=== PATIENT | male | born 1990 | race Caucasian/White ===

== ENCOUNTER 2021-04-15 17:01 | Emergency (ER) | payer SELFPAY ==
--- NOTE | ~2021-04-15 | US_ITS ---
EXAMINATION: US ABDOMEN LIMITED CLINICAL INFORMATION: Right upper quadrant pain with question of gallstones. COMPARISON: None TECHNIQUE: Real-time imaging of the right upper quadrant limited to the gallbladder was performed. FINDINGS: GALLBLADDER: The gallbladder is physiologically distended without evidence of stones, sludge, polyps, wall thickening or pericholecystic fluid. The gallbladder wall measures 2 mm in thickness. No free fluid is seen. The visualized portions of the liver were unremarkable. US/US abdomen limited IMPRESSION: Normal-appearing gallbladder.
[2021-04-15 17:40] VITALS: BP 140/81; PULSE 81; RESP 18; TEMP 37; O2SAT 100; BMI 39.1
[2021-04-15 19:53] LABS: MANUAL DIFF FLAG NO
[2021-04-15 19:54] LABS: Basophils Percent Auto 0.3 % (0-2); Eosinophils Absolute Auto 0.1 X10*3/uL (0.0-0.4); Eosinophils Percent Auto 1.4 % (0-4); Hemoglobin 14.6 g/dl (14.0-18.0); Imm Gran Abs Auto 0.01 X10*3/uL (0.00-0.03); Imm Gran Pct Auto 0.2 % (0.0-0.4); Lymphocytes Absolute Auto 2.2 X10*3/uL (1.2-4.9); Lymphocytes Percent Auto 37.7 % (20-40); Mean Corpuscular Hemoglobin 30.2 pg (27.0-33.0); Mean Corpuscular Volume 88.8 fL (80-98); Mean Platelet Volume 9.9 fL (9.4-12.4); Monocytes Absolute Auto 0.5 X10*3/uL (0.1-1.2); Monocytes Percent Auto 7.9 % (2-11); Neutrophils Percent Auto 52.5 % (45-73); Platelet Count 206 X10*3/uL (160-400); Red Blood Count 4.84 X10*6/uL (4.60-5.80); White Blood Count 5.7 X10*3/uL (4.8-10.8)
[2021-04-15 20:16] LABS: Alanine Aminotransferase 32 U/L (0-40); Albumin Level 4.6 g/dL (3.5-5.0); Alkaline Phosphatase 59 U/L (39-117); Anion Gap 14 (12-20); Aspartate Amino Transferase 29 U/L (5-37); Bilirubin Total 0.8 mg/dL (0.0-1.0); Blood Urea Nitrogen 10 mg/dL (9-16); Calcium 9.1 mg/dL (8.4-10.2); Carbon Dioxide 27 mmol/L (22-29); Chloride 105 mmol/L (96-108); Creatinine Clr Calc Pharmacy 178.6; Estimated Glomerular Filt Rate > 60; Glucose Random 96 mg/dL (60-115); Potassium 4.4 mmol/L (3.3-5.1); Sodium 142 mmol/L (135-145); Total Protein 7.4 g/dL (6.5-8.0)
--- NOTE | 2021-04-15 20:46 | ED.ABDPAIN ---
HPI - Abdominal Pain General Chief Complaint: Abdominal Pain Stated Complaint: abd pain Time Seen by Provider: 04/15/21 20:38 Source: patient Mode of arrival: ambulatory Limitations: no limitations History of Present Illness HPI narrative: 30-year-old male who presents emergency department for evaluation of abdominal pain. Patient states that he has been having abdominal pain intermittently for 2 months. States that over the past week the pain has been constant and has been worse over the past 3 days. The patient points to his right upper quadrant area when asked to localize the pain. He describes the pain as a stabbing pain and I bloated gaslike feeling. States that the pain has been constant for 3 days and is 8/10 at its worst. He states the pain is worse approximately 1 hour after eating food. He states that milk products seem to make the pain worse as well. He has had intermittent nausea with no vomiting. He states he did have diarrheal stools yesterday but had normal bowel movement today. He denied fever or chills. Related Data Previous Rx's Medication Instructions Recorded omeprazole 20 mg PO DAILY #30 tab 04/15/21 Allergies Allergy/AdvReac Type Severity Reaction Status Date / Time No Known Allergies Allergy Verified 04/15/21 17:40 Review of Systems Review of Systems Yes all other systems are reviewed and are negative Physical Exam Vital Signs: Vital Signs: Last Vital Signs Temp 98.6 F 04/15/21 17:40 Pulse 81 04/15/21 17:40 Resp 18 04/15/21 17:40 BP 140/81 H 04/15/21 17:40 Pulse Ox 100 04/15/21 17:40 Body Mass Index 39.1 Const: General: cooperative and healthy appearing Orientation/consciousness: oriented to person and oriented to place Limitations: no limitations HENMT: Head: Yes normal to inspection, Yes normocephalic and Yes atraumatic Ears: external ears normal General nose exam: Normal external nose present Face and sinus: Yes normal facial exam Mouth: Normal oral and palatal mucosa present Throat: Yes posterior oropharynx normal Eyes: Periorbital: periorbital findings normal Eyelids: Yes eyelids normal Conjunctivae: conjunctivae normal Sclerae: sclerae normal Corneas: corneas normal Pupils: Equal, round and reactive pupils present Direct Ophthalmoscopy: normal light reflex Neck: Neck: Yes full ROM, Yes no lymphadenopathy, Yes no meningeal signs, Yes trachea midline and Yes supple Chest: Chest palpation & inspection: normal inspection of the chest and normal palpation of entire chest wall Resp: Effort & Inspection: normal respiratory effort and able to speak in complete sentences Auscultation: clear to auscultation bilaterally Cardio: Rate: regular rate Rhythm: regular rhythm Heart sounds: S1 normal heart sound present, S2 normal heart sound present and no murmurs GI: Inspection: Yes normal to inspection Palpation (GI): Soft to palpation, Tenderness to palpation present (GI) in the RUQ (Moderate, negative Stanley sign), no guarding, not rigid and No hepatosplenomegaly present : General: Yes no CVA tenderness Back/Spine/Pelvis: Back: no CVA tenderness Cervical Spine: normal cervical lordosis Thoracic/Lumbar Spine: thoracic and lumbar spine normal to inspection Skin: Lesions: no lesions Rashes: no rashes Wounds: no wounds Neuro: General: oriented to person, oriented to place and no meningeal signs Cranial nerves: Yes CN's II-XII intact bilaterally and Yes Equal, round and reactive pupils present Cognition (Neuro): normal cognition Motor exam (neuro): 5/5 motor strength present throughout Extrem: General: Yes normal to inspection and Yes full ROM Psych: Appearance: well kempt Mental Status: mental status grossly normal Speech and movement: Normal speech and movement present Affect: normal affect Attitude: cooperative Thought process: Normal thought process present Thought content: Normal thought content present Course Course Course Narrative: 30-year-old male who presents emergency department for evaluation of her intermittent right upper quadrant pain which has been constant for the past week and worse the past 3 days. The pain is exacerbated by food and is worse 1-2 hours after eating. Physical examination did reveal right upper quadrant tenderness. Laboratory evaluation revealed a normal CBC and a normal CMP. I did order a lipase on the patient and a right upper quadrant ultrasound to evaluate the patient for gallstones. 2225: Patient's Doppler ultrasound was normal. Given normal LFTs and a normal Doppler ultrasound, I suspect that his pain is more likely secondary to gastritis/esophagitis. I did discuss this with the patient. The patient will be treated with Prilosec 20 mg once a day for 1 month. He was given printed and verbal instructions and advised return to emergency department if his symptoms get worse or if developing new symptoms that are concerning to him. MDM - Abdominal Pain Lab Data Result diagrams: 04/15/21 19:48 04/15/21 19:48 Labs: Lab Results 04/15/21 04/15/21 Range/Units 19:48 19:48 WBC 5.7 (4.8-10.8) X10*3/uL RBC 4.84 (4.60-5.80) X10*6/uL Hgb 14.6 (14.0-18.0) g/dl Hct 43.0 (42-52) % MCV 88.8 (80-98) fL MCH 30.2 (27.0-33.0) pg MCHC 34.0 (31.0-36.0) g/dl RDW 13.0 (11.0-16.0) % Plt Count 206 (160-400) X10*3/uL MPV 9.9 (9.4-12.4) fL Immature Gran % (Auto) 0.2 (0.0-0.4) % Neut % (Auto) 52.5 (45-73) % Lymph % (Auto) 37.7 (20-40) % [place] % (Auto) 7.9 (2-11) % Eos % (Auto) 1.4 (0-4) % Baso % (Auto) 0.3 (0-2) % Lymph # (Auto) 2.2 (1.2-4.9) X10*3/uL [place] # (Auto) 0.5 (0.1-1.2) X10*3/uL Eos # (Auto) 0.1 (0.0-0.4) X10*3/uL Baso # (Auto) 0.0 (0.0-0.2) X10*3/uL Abs Immat Gran (auto) 0.01 (0.00-0.03) X10*3/uL Absolute Neuts (auto) 3.0 (2.0-8.3) X10*3/uL Absolute Nucleated RBC 0.000 (0.0-0.012) X10*3/uL Nucleated RBC % (auto) 0.0 (0.0-0.2) /100WBC Sodium 142 (135-145) mmol/L Potassium 4.4 (3.3-5.1) mmol/L Chloride 105 (96-108) mmol/L Carbon Dioxide 27 (22-29) mmol/L Anion Gap 14 (12-20) BUN 10 (9-16) mg/dL Creatinine 0.83 (0.5-1.4) mg/dL Estim Creat Clear Calc 178.6 Estimated GFR > 60 Random Glucose 96 (60-115) mg/dL Calcium 9.1 (8.4-10.2) mg/dL Total Bilirubin 0.8 (0.0-1.0) mg/dL AST 29 (5-37) U/L ALT 32 (0-40) U/L Alkaline Phosphatase 59 (39-117) U/L Total Protein 7.4 (6.5-8.0) g/dL Albumin 4.6 (3.5-5.0) g/dL Lipase 29 (8-78) U/L Discharge Plan Discharge Clinical Impression: Gastritis Patient Disposition: Home, Self-Care Instructions: Gastritis (ED) Additional Instructions: Your blood work was all normal which is reassuring. The ultrasound of your gallbladder revealed a normal appearing gallbladder with no gallstones which is also reassuring At this time, I think that your pain is caused by your stomach, you may be producing too much acid in your stomach causing inflammation (gastritis). Take Prilosec (omeprazole) 20 mg pills, 1 pill daily for 1 month. Follow-up with your doctor in 2 days. Please return to the emergency department if your symptoms get worse or if you develop any symptoms that are concerning to you. Prescriptions: New omeprazole 20 mg tablet,delayed release (DR/EC) 20 mg PO DAILY Qty: 30 RF: 0 PMFSH Past Medical History PMF Narrative: Past medical history: None. Past surgical history: None. Social history: The patient states that he occasionally smokes cigarettes. He states that he rarely drinks alcohol and drinks once or twice every month. He denies drug use. Social History Social History Advance Directives: No Advance Directives Information Provided: No
[2021-04-15 21:04] LABS: Lipase 29 U/L (8-78)
[2021-04-15 22:41] VITALS: BP 132/79; PULSE 77; RESP 16; TEMP 36.7; O2SAT 100
== END 2021-04-15 22:42 | disposition home or self-care (01) ==
PROVIDERS: Emergency Provider Emergency Medicine Emergency Medical Services
DX: K29.70 Gastritis, unspecified, without bleeding (principal); R10.11 Right upper quadrant pain; Z79.899 Other long term (current) drug therapy
CPT/HCPCS: 36415; 76705; 80053; 83690; 85025; 99283

== ENCOUNTER 2021-10-15 12:16 | Emergency (ER) | payer MEDICAID, SELFPAY ==
--- NOTE | ~2021-10-15 | US_ITS ---
EXAMINATION: US ABDOMEN LIMITED CLINICAL INFORMATION: Right upper quadrant pain. Rule out cholecystitis.. COMPARISON: None TECHNIQUE: Real-time imaging of the right upper quadrant abdominal viscera. FINDINGS: The gallbladder is normally distended without any echogenic stones or wall thickening. Gallbladder wall measures 0.13 cm. Common bile measures 0.28 cm and appears unremarkable. US/US abdomen limited IMPRESSION: Unremarkable gallbladder and CBD.
[2021-10-15 12:24] VITALS: BP 128/87; PULSE 78; RESP 18; TEMP 36.9; O2SAT 97; BMI 40.0
[2021-10-15 14:14] LABS: MANUAL DIFF FLAG NO
[2021-10-15 14:16] LABS: Basophils Percent Auto 0.3 % (0-2); Eosinophils Absolute Auto 0.1 X10*3/uL (0.0-0.4); Eosinophils Percent Auto 1.9 % (0-4); Hematocrit 43.5 % (42.0-52.0); Hemoglobin 14.8 g/dl (14.0-18.0); Imm Gran Abs Auto 0.01 X10*3/uL (0.00-0.03); Imm Gran Pct Auto 0.2 % (0.0-0.4); Lymphocytes Absolute Auto 1.5 X10*3/uL (1.2-4.9); Lymphocytes Percent Auto 26.1 % (20-40); Mean Corpuscular Hemoglobin 30.3 pg (27.0-33.0); Mean Corpuscular Volume 89.1 fL (80.0-98.0); Mean Platelet Volume 9.8 fL (9.4-12.4); Monocytes Absolute Auto 0.4 X10*3/uL (0.1-1.2); Monocytes Percent Auto 6.8 % (2-11); Neutrophils Absolute Auto 3.8 x10*3/uL (2.0-8.3); Neutrophils Percent Auto 64.7 % (45-73); Platelet Count 220 X10*3/uL (160-400); Red Blood Count 4.88 X10*6/uL (4.60-5.80); Red Cell Distribution Width 12.7 % (11.0-16.0); White Blood Count 5.9 X10*3/uL (4.8-10.8)
[2021-10-15 14:18] VITALS: BP 112/68; PULSE 80; RESP 18; TEMP 37.1; O2SAT 92
[2021-10-15 14:34] LABS: Alanine Aminotransferase 34 U/L (0-40); Albumin Level 4.5 g/dL (3.5-5.0); Alkaline Phosphatase 45 U/L (39-117); Anion Gap 11 (12-20); Aspartate Amino Transferase 22 U/L (5-37); Bilirubin Direct 0.4 mg/dL (0.0-0.5); Bilirubin Total 1.4 mg/dL (0.0-1.0); Blood Urea Nitrogen 10 mg/dL (9-16); Carbon Dioxide 28 mmol/L (22-29); Chloride 106 mmol/L (96-108); Creatinine Clr Calc Pharmacy 158.2; Estimated Glomerular Filt Rate > 60; Glucose Random 104 mg/dL (60-115); Lipase 32 U/L (8-78); Potassium 4.2 mmol/L (3.3-5.1); Sodium 141 mmol/L (135-145); Total Protein 7.2 g/dL (6.5-8.0)
--- NOTE | 2021-10-15 14:39 | ED_ITS ---
HPI - Abdominal Pain General Chief Complaint: Abdominal Pain Stated Complaint: abd pain Time Seen by Provider: 10/15/21 14:04 Source: patient Mode of arrival: ambulatory Limitations: no limitations History of Present Illness HPI narrative: 31-year-old male came in for evaluation of abdominal pain. Symptoms started 1 month ago, has intermittent right upper quadrant pain, pain is worsening by food (any type of food). Pain is localized to the right upper quadrant area with no radiation, not otherwise no relieving factor, no other associated factor, no loss of weight, no nausea, no vomiting, no fever. Related Data Previous Rx's Medication Instructions Recorded omeprazole 20 mg tablet,delayed 20 mg PO DAILY #30 tab 04/15/21 release omeprazole magnesium 20 mg 20 mg PO BID #30 tab 10/15/21 tablet,delayed release (Prilosec OTC) Allergies Allergy/AdvReac Type Severity Reaction Status Date / Time No Known Allergies Allergy Verified 04/15/21 17:40 Review of Systems Review of Systems All other systems are reviewed and are negative Constitutional: Reports as per HPI and Reports no additional constitutional complaints Eyes: Reports as per HPI and Reports no additional eye complaints Reports system reviewed and no additional complaints, except as documented Cardiovascular: Reports as per HPI and Reports no additional cardiovascular complaints Respiratory: Reports as per HPI and Reports no additional respiratory complaints Gastrointestinal: Reports as per HPI and Reports no additional gastrointestinal complaints Genitourinary: Reports no additional female genitourinary complaints Musculoskeletal: Reports no additional musculoskeletal complaints Skin/Breast: Reports system reviewed and no additional complaints, except as docu Psychiatric: Reports no additional psychiatric complaints Endocrine: Reports no additional endocrine complaints Hematologic/Lymphatic: Reports no additional hematologic/lymphatic complaints Allergic/Immunologic: Reports no additional allergic/immunologic complaints Reports system reviewed and no additional complaints, except as documented and Reports Abnormal speech present Physical Exam Vital Signs: Vital Signs: Last Vital Signs Temp 98.8 F 10/15/21 14:18 Pulse 80 10/15/21 14:18 Resp 18 10/15/21 14:18 BP 112/68 10/15/21 14:18 Pulse Ox 92 10/15/21 14:18 BMI result Body Mass Index 40.0 vital signs have been reviewed as appeared to be correct. Blood pressure normal. Heart rate normal. Respiration rate normal. Temperature normal. Oxygen saturation normal. Appearance: Alert. Oriented X3. No acute distress. Head: Normal external exam. Normocephalic. Atraumatic. No Dang signs noted. No raccoon eyes noted Eyes: PERRLA. EOMI. Conjunctiva and sclera normal. Eyelids normal. ENT: TM's Normal. Pharynx normal. Uvula midline. Moist mucous membranes. No trismus noted. No drooling noted. No muffled voice noted. Neck: Normal inspection. Neck supple. FROM. No adenopathy. Thyroid Normal. No meningeal signs. No neck mass noted. CVS: Normal heart rate and rhythm. Heart sound normal. No murmurs noted. Pulses normal throughout. Respiratory: No respiratory distress. Painless inspiration. Breath sounds normal. No wheezes/rales/rhonchi noted. Chest nontender. No accessory muscle usage noted or decreased air movement noted. Abdomen: Soft and nontender. Bowel sounds normal in all 4 quadrants. No distention noted. No organomegaly noted. No visible injury noted. Back: No CVA tenderness. Full range of motion noted. Skin: Skin warm and dry. Normal skin color. Normal skin turgor. No rashes/lesions/lacerations noted. Extremities: No lower extremity edema. Extremities exhibit normal range of motion. Extremities nontender. Neuro: Oriented X 3. Cranial nerve exam: II-XII are grossly intact No motor deficit. No sensory deficit. Reflexes normal. Course Course Course Narrative: Assessment and plan. 31-year-old male came in for evaluation of upper abdominal pain for 1 month pain is food related, patient has unremarkable labs, physical exam is unremarkable for tenderness, patient had ultrasound of the gallbladder which showed normal gallbladder, likely patient's symptoms is secondary to gastritis. Will start the patient on Prilosec and follow-up with GI for possible upper endoscopy. MDM - Abdominal Pain Medical Records Attestation: I reviewed the patient's medical records. Lab Data Attestation: I reviewed the patient's lab results. Result diagrams: 10/15/21 14:10 10/15/21 14:10 Labs: Lab Results 10/15/21 10/15/21 10/15/21 Range/Units 14:10 14:10 15:09 WBC 5.9 (4.8-10.8) X10*3/uL RBC 4.88 (4.60-5.80) X10*6/uL Hgb 14.8 (14.0-18.0) g/dl Hct 43.5 (42.0-52.0) % MCV 89.1 (80.0-98.0) fL MCH 30.3 (27.0-33.0) pg MCHC 34.0 (31.0-36.0) g/dl RDW 12.7 (11.0-16.0) % Plt Count 220 (160-400) X10*3/uL MPV 9.8 (9.4-12.4) fL Immature Gran % (Auto) 0.2 (0.0-0.4) % Neut % (Auto) 64.7 (45-73) % Lymph % (Auto) 26.1 (20-40) % [place] % (Auto) 6.8 (2-11) % Eos % (Auto) 1.9 (0-4) % Baso % (Auto) 0.3 (0-2) % Lymph # (Auto) 1.5 (1.2-4.9) X10*3/uL [place] # (Auto) 0.4 (0.1-1.2) X10*3/uL Eos # (Auto) 0.1 (0.0-0.4) X10*3/uL Baso # (Auto) 0.0 (0.0-0.2) X10*3/uL Abs Immat Gran (auto) 0.01 (0.00-0.03) X10*3/uL Absolute Neuts (auto) 3.8 (2.0-8.3) x10*3/uL Absolute Nucleated RBC 0.000 (0.0-0.012) X10*3/uL Nucleated RBC % (auto) 0.0 (0.0-0.2) /100WBC Sodium 141 (135-145) mmol/L Potassium 4.2 (3.3-5.1) mmol/L Chloride 106 (96-108) mmol/L Carbon Dioxide 28 (22-29) mmol/L Anion Gap 11 L (12-20) BUN 10 (9-16) mg/dL Creatinine 0.94 (0.5-1.4) mg/dL Estim Creat Clear Calc 158.2 Estimated GFR > 60 Random Glucose 104 (60-115) mg/dL Calcium 10.0 D (8.4-10.2) mg/dL Total Bilirubin 1.4 H (0.0-1.0) mg/dL Direct Bilirubin 0.4 (0.0-0.5) mg/dL AST 22 (5-37) U/L ALT 34 (0-40) U/L Alkaline Phosphatase 45 D (39-117) U/L Total Protein 7.2 (6.5-8.0) g/dL Albumin 4.5 (3.5-5.0) g/dL Lipase 32 (8-78) U/L Urine Color YELLOW Urine Appearance CLEAR Urine pH 6.0 (5.0-8.0) Ur Specific [place] 1.025 (1.005-1.025) Urine Protein NEG (NEG-TRACE) MG/DL Urine Glucose (UA) NEG (NEG) MG/DL Urine Ketones NEG (NEG) MG/DL Urine Blood 1+ H (NEG) Urine Nitrite NEG (NEG) Ur Leukocyte Esterase NEG (NEG) Urine RBC 1-4 (0) /HPF Urine WBC 0 (0-4) /HPF Ur Squamous Epith Cells TRACE /LPF Urine Bacteria TRACE /LPF Hyaline Casts 0-2 /LPF Urine Mucus TRACE /LPF Imaging Data US - abdomen: Radiologist's impression: Unremarkable gallbladder and CBD. Discharge Plan Discharge Clinical Impression: Abdominal pain Qualifiers: Abdominal location: epigastric Qualified Code(s): R10.13 - Epigastric pain Gastritis Qualifiers: Gastritis type: unspecified gastritis Chronicity: acute Gastritis bleeding: without bleeding Qualified Code(s): K29.00 - Acute gastritis without bleeding Patient Disposition: Home, Self-Care Instructions: Gastritis (ED) Prescriptions: New omeprazole magnesium [Prilosec OTC] 20 mg tablet,delayed release (DR/EC) 20 mg PO BID Qty: 30 RF: 0 No Action omeprazole 20 mg tablet,delayed release (DR/EC) 20 mg PO DAILY Qty: 30 RF: 0 Referrals: Ana M Avery MD [Physician] - 2 days [facility] Past Medical History Medical History Asthma Social History Social History Alcohol intake: unknown Patient Tobacco Use Status: Tobacco use Unknown Use of substances other than those prescribed or required for medical reasons: No Advance Directives: No Advance Directives Information Provided: No
[2021-10-15 15:17] LABS: Appearance Urine CLEAR; Color Urine YELLOW; Glucose Urine UA NEG (NEG); Leukocyte Esterase Urine NEG (NEG); Nitrite Urine NEG (NEG); Specific Gravity - Urine 1.025 (1.005-1.025); UACC Culture Trigger NO; Urine Blood 1+ (NEG); Urine Ketones NEG (NEG); Urine Protein NEG (NEG-TRACE)
[2021-10-15 15:25] LABS: Bacteria Urine TRACE /LPF; Hyaline Casts Urine 0-2 /LPF; Mucus Urine TRACE /LPF; Squamous Epithelial Cell Urine TRACE /LPF; WBC Urine 0 /HPF (0-4)
== END 2021-10-15 16:36 | disposition home or self-care (01) ==
PROVIDERS: Emergency Provider Emergency Medicine
DX: K29.00 Acute gastritis without bleeding (principal); R10.13 Epigastric pain; R10.11 Right upper quadrant pain; Z79.899 Other long term (current) drug therapy
CPT/HCPCS: 36415; 76705; 80048; 80076; 81001; 83690; 85025; 99284

== ENCOUNTER 2021-12-25 15:34 | Emergency (ER) | payer OTHER, MEDICAID, SELFPAY ==
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
[2021-12-25 16:11] VITALS: BP 134/84; PULSE 115; RESP 17; TEMP 36.7; O2SAT 95; BMI 38.6
[2021-12-25 16:51] LABS: MANUAL DIFF FLAG NO
[2021-12-25 16:53] LABS: Basophils Percent Auto 0.1 % (0-2); Eosinophils Percent Auto 0.2 % (0-4); Hematocrit 44.1 % (42.0-52.0); Hemoglobin 14.8 g/dl (14.0-18.0); Imm Gran Abs Auto 0.03 X10*3/uL (0.00-0.03); Imm Gran Pct Auto 0.3 % (0.0-0.4); Lymphocytes Percent Auto 10.9 % (20-40); Mean Corpuscular HGB Conc 33.6 g/dl (31.0-36.0); Mean Corpuscular Hemoglobin 29.5 pg (27.0-33.0); Mean Platelet Volume 9.6 fL (9.4-12.4); Monocytes Absolute Auto 0.5 X10*3/uL (0.1-1.2); Monocytes Percent Auto 5.5 % (2-11); Neutrophils Absolute Auto 7.6 x10*3/uL (2.0-8.3); Platelet Count 229 X10*3/uL (160-400); Red Blood Count 5.01 X10*6/uL (4.60-5.80); Red Cell Distribution Width 12.7 % (11.0-16.0); White Blood Count 9.2 X10*3/uL (4.8-10.8)
[2021-12-25 17:07] LABS: Prothrombin Time 11.7 SEC (9.9-13.0)
[2021-12-25 17:09] LABS: COVID-19 Test Negative (Negative); IDNOW Serial# 9DD0AD1C
[2021-12-25 17:10] LABS: Alanine Aminotransferase 32 U/L (0-40); Albumin Level 4.3 g/dL (3.5-5.0); Alkaline Phosphatase 47 U/L (39-117); Anion Gap 12 (12-20); Aspartate Amino Transferase 23 U/L (5-37); Bilirubin Direct 0.2 mg/dL (0.0-0.5); Bilirubin Total 0.4 mg/dL (0.0-1.0); Blood Urea Nitrogen 12 mg/dL (9-16); Calcium 9.5 mg/dL (8.4-10.2); Carbon Dioxide 26 mmol/L (22-29); Chloride 105 mmol/L (96-108); Creatinine Clr Calc Pharmacy 126.9; Estimated Glomerular Filt Rate > 60; Glucose Random 109 mg/dL (60-115); Partial Thromboplastin Time 31.8 SEC (24.1-38.0); Potassium 3.9 mmol/L (3.3-5.1); Sodium 139 mmol/L (135-145)
[2021-12-25] MEDS: iohexoL 350 MG/ML 100 ML INFUS..BTL IV (17:35)
[2021-12-25 19:18] VITALS: BP 115/70; PULSE 89; RESP 17; O2SAT 98
== END 2021-12-25 19:20 | disposition home or self-care (01) ==
PROVIDERS: Physician Assistant; Emergency Provider Emergency Medicine Emergency Medical Services
DX: S20.214A Contusion of middle front wall of thorax, initial encounter (principal); R51.9 Headache, unspecified; R10.2 Pelvic and perineal pain; V47.5XXA Car driver injured in collision with fixed or stationary object in traffic accident, initial encounter; Y93.9 Activity, unspecified; Y92.410 Unspecified street and highway as the place of occurrence of the external cause; Y99.9 Unspecified external cause status; Z79.899 Other long term (current) drug therapy; Z20.822 Contact with and (suspected) exposure to COVID-19
CPT/HCPCS: 36415; 70450; 71260; 74177; 80048; 80076; 85025; 85610; 85730; 87635; 99284; Q9967

== ENCOUNTER 2022-03-05 10:38 | Emergency (ER) | payer MEDICAID, SELFPAY ==
--- NOTE | ~2022-03-05 | US_ITS ---
EXAMINATION: US ABDOMEN LIMITED CLINICAL INFORMATION: Right upper quadrant pain. COMPARISON: CT abdomen from 12/25/2021 TECHNIQUE: Real-time imaging of the right upper quadrant abdominal viscera. Technically limited secondary to patient body habitus FINDINGS: PANCREAS: Visualized portions of the pancreas are unremarkable. LIVER: Normal. The liver is normal in size. The liver contour is normal. Increased hepatic echogenicity suggesting hepatic steatosis. No focal hepatic lesion. There is no intrahepatic biliary duct dilatation seen. GALLBLADDER: Normal. The gallbladder is physiologically distended without evidence of stones, sludge, polyps, wall thickening or pericholecystic fluid. Sonographic Stanley sign is negative. COMMON BILE DUCT: Normal in caliber measuring 0.3 cm in diameter. RIGHT KIDNEY: Cystic focus within the right renal interpolar region with peripheral calcification measuring 1.2 x 1.1 x 1.5 cm. No hydronephrosis. No renal calculi or focal parenchymal lesions. The kidney measures 11.4 cm in maximum dimension. FREE FLUID: None. US/US abdomen limited IMPRESSION: 1. Increased hepatic echogenicity suggesting hepatic steatosis. 2. Cystic focus within the right renal interpolar region with peripheral calcification measuring 1.2 x 1.1 x 1.5 cm.
[2022-03-05 11:04] VITALS: BP 131/82; PULSE 78; RESP 20; TEMP 36.4; O2SAT 98; BMI 41.9
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
[2022-03-05 12:14] LABS: MANUAL DIFF FLAG NO
[2022-03-05 12:22] LABS: Basophils Percent Auto 0.4 % (0-2); Eosinophils Absolute Auto 0.1 X10*3/uL (0.0-0.4); Eosinophils Percent Auto 1.7 % (0-4); Hematocrit 42.8 % (42.0-52.0); Hemoglobin 14.3 g/dl (14.0-18.0); Imm Gran Abs Auto 0.01 X10*3/uL (0.00-0.03); Imm Gran Pct Auto 0.2 % (0.0-0.4); Lymphocytes Absolute Auto 1.5 X10*3/uL (1.2-4.9); Lymphocytes Percent Auto 31.8 % (20-40); Mean Corpuscular HGB Conc 33.4 g/dl (31.0-36.0); Mean Corpuscular Hemoglobin 29.4 pg (27.0-33.0); Mean Corpuscular Volume 87.9 fL (80.0-98.0); Mean Platelet Volume 9.7 fL (9.4-12.4); Monocytes Absolute Auto 0.4 X10*3/uL (0.1-1.2); Monocytes Percent Auto 7.4 % (2-11); Neutrophils Absolute Auto 2.8 x10*3/uL (2.0-8.3); Neutrophils Percent Auto 58.5 % (45-73); Platelet Count 213 X10*3/uL (160-400); Red Blood Count 4.87 X10*6/uL (4.60-5.80); White Blood Count 4.7 X10*3/uL (4.8-10.8)
[2022-03-05] MEDS: Famotidine 20 MG TABLET PO (12:33)
[2022-03-05] MEDS: Magnesium Hydrox/Alum Hydrox 30 ML ORAL.SUSP PO (12:34)
[2022-03-05] MEDS: Lidocaine HCl Viscous 2 % 15 ML SOLUTION MUCOUS MEM (12:34)
--- NOTE | 2022-03-05 12:36 | PC.NURSE ---
pt medicated per order
[2022-03-05 12:40] LABS: Alanine Aminotransferase 41 U/L (0-40); Albumin Level 4.1 g/dL (3.5-5.0); Alkaline Phosphatase 38 U/L (39-117); Anion Gap 9 (12-20); Aspartate Amino Transferase 28 U/L (5-37); Bilirubin Total 0.8 mg/dL (0.0-1.0); Blood Urea Nitrogen 12 mg/dL (9-16); Calcium 9.4 mg/dL (8.4-10.2); Carbon Dioxide 28 mmol/L (22-29); Chloride 105 mmol/L (96-108); Creatinine Clr Calc Pharmacy 175.3; Estimated Glomerular Filt Rate > 60; Glucose Random 96 mg/dL (60-115); Lipase 23 U/L (8-78); Magnesium 1.7 mg/dL (1.6-2.6); Potassium 4.4 mmol/L (3.3-5.1); Sodium 138 mmol/L (135-145); Total Protein 6.6 g/dL (6.5-8.0)
[2022-03-05 14:00] VITALS: BP 118/69; PULSE 72; RESP 18; TEMP 37; O2SAT 99
--- NOTE | 2022-03-05 14:16 | PC.NURSE ---
pt a&ox3, vss, resting quietly, medication reduced pain and allowed pt to sleep. no new orders at this time.
== END 2022-03-05 14:47 | disposition home or self-care (01) ==
PROVIDERS: Nurse Practitioner Family; Emergency Provider Student in an Organized Health Care Education/Training Program
DX: K29.70 Gastritis, unspecified, without bleeding (principal); R10.11 Right upper quadrant pain; Z79.899 Other long term (current) drug therapy
CPT/HCPCS: 36415; 76705; 80053; 83690; 83735; 85025; 99284

== ENCOUNTER 2023-01-19 10:11 | Emergency (ER) | payer OTHER, SELFPAY ==
[2023-01-19 10:34] VITALS: BP 138/73; PULSE 79; RESP 18; TEMP 36.6; O2SAT 98; BMI 39.0
--- NOTE | 2023-01-19 13:50 | ED.BACK ---
HPI - Back Pain/Injury General Chief Complaint: Back Pain/Injury Stated Complaint: Back inj/Work related Time Seen by Provider: 01/19/23 13:33 Source: patient Mode of arrival: ambulatory Limitations: no limitations History of Present Illness HPI Narrative: 32 y.o.male with PMHx asthma, who presents to the ED c/o lower back pain x5 days after lifting heavy objects at work. Reports pain and minor parethesias radiating down bilateral LE. Pt was initally seen in [place], had x-rays and was diagnosed with possible herniated discs, Rx Flexeril/ibuprofen without relief. Denies bowel/bladder incontinence, saddle parethesias, fever/chills, hematuria/dysuria MD elicited complaint: back pain and back injury Onset (ago): day(s) Related Data Previous Rx's Medication Instructions Recorded omeprazole 20 mg tablet,delayed 20 mg PO DAILY #30 tabs 04/15/21 release omeprazole magnesium 20 mg 20 mg PO BID #30 tabs 10/15/21 tablet,delayed release (Prilosec OTC) cyclobenzaprine 10 mg tablet 10 mg PO TID PRN muscle spasm #14 12/25/21 tabs ibuprofen 600 mg tablet 600 mg PO Q8H PRN pain #20 tabs 12/25/21 lidocaine 5 % topical patch 1 patch topical DAILY #15 ea 12/25/21 omeprazole 20 mg capsule,delayed 20 mg PO DAILY #14 caps 03/05/22 release acetaminophen 500 mg tablet 500 mg PO Q6H PRN fever or pain 01/19/23 (Tylenol Extra Strength) #14 tabs lidocaine 5 % topical patch 1 patch topical DAILY PRN pain #30 01/19/23 (Lidoderm) ea Allergies Allergy/AdvReac Type Severity Reaction Status Date / Time No Known Allergies Allergy Verified 03/05/22 11:08 Review of Systems Review of Systems: Constitutional: No Fever, No Chills ENT/Mouth: No Hoarseness, No sore throat, No Rhinorrhea Cardiovascular: No Chest Pain, No SOB Respiratory: No Cough, No Wheezing Gastrointestinal: No Nausea, No Vomiting, No Diarrhea, No Constipation, No Incontinence, No Abdominal pain Genitourinary: No Dysuria, No Urinary Frequency, No Urinary Incontinence/retention Musculoskeletal: +Lower Back pain radiating down bilateral LE, No Joint Swelling Skin: No Skin Lesions, No rash Neuro: No Weakness, +Numbness, +Paresthesias bilateral LE/toes Yes all other systems are reviewed and are negative Constitutional: Constitutional: Reports as per [facility] Past Medical History Attestation statement: The following information was validated with the patient. Medical History Asthma COVID-19 Obesity Social History Social History Alcohol intake: current Alcohol intake frequency: holidays/special occasions only Alcohol type: beer Patient Tobacco Use Status: Never used Tobacco Advance Directives: No Advance Directives Information Provided: No Physical Exam Vital Signs: Vital Signs: Last Vital Signs Temp 98.0 F 01/19/23 15:11 Pulse 76 01/19/23 15:11 Resp 18 01/19/23 15:11 BP 128/79 01/19/23 15:11 Pulse Ox 96 01/19/23 15:11 O2 Del Method 01/19/23 15:11 BMI result Body Mass Index 39.0 Const: General: cooperative, healthy appearing and no acute distress Orientation/consciousness: patient oriented x3 Limitations: no limitations HEENT: Head: Yes normal to inspection and Yes atraumatic Ears: hearing grossly normal bilaterally General nose exam: Normal external nose present Face and sinus: Yes normal facial exam Eyes: General: appearance normal, both eyes and all related structures EOM: EOMs intact bilaterally Neck: Other: No midline cervical spinous tenderness Neck: Yes normal visual inspection and Yes no meningeal signs Resp: Effort & Inspection: normal respiratory effort and no respiratory distress Auscultation: clear to auscultation bilaterally Cardio: Rate: regular rate GI: Inspection: Yes normal to inspection Palpation (GI): Soft to palpation, nontender, no guarding and not rigid : General: Yes no CVA tenderness Back/Spine/Pelvis: Back: no CVA tenderness and back tenderness (lumbar midline & paraspinal region) Thoracic/Lumbar Spine: thoracic and lumbar spine normal to inspection Skin: Rashes: no rashes Wounds: no wounds Neuro: Other: Strength intact throughout. No saddle anesthesia. Sensation intact to light touch. Neurovascular intact distally General: patient oriented x3, gait normal, tone normal, moves all extremities and no meningeal signs Gait exam (Neuro): Normal gait present Motor exam (neuro): 5/5 motor strength present throughout Sensory Exam: Normal double simultaneous stimulation for sensation Extrem: General: Yes normal to inspection Medications Administered Discontinued Medications Generic Name Dose Route Start Last Admin Trade Name Anoop PRN Reason Stop Dose Admin Ketorolac Tromethamine 30 mg 01/19/23 14:38 01/19/23 15:15 Ketorolac Tromethamine 30 Mg/Ml Vial IM 01/19/23 14:39 30 mg ONCE ONE Administration Lidocaine 1 patch 01/19/23 14:38 01/19/23 15:14 Lidocaine 4 % Patch Adh..Patch TRANSDERMA 01/19/23 14:39 1 patch ONCE ONE Administration Protocol Medical Decision Making Medical Decision Making [facility] Narrative: 32 y.o.male with PMHx asthma, who presents to the ED c/o lower back pain x5 days after lifting heavy objects at work. On exam VSS, NAD, tenderness to palpation to midline and paraspinal lumbar region. No ecchymosis or bruising is appreciated. Neuro exam WNL, sensation intact and equal with 5/5 strength in upper and lower extremities, no saddle anesthesia or red flag sx, ambulating w/steady gait. Concern for herniated disc, MSK strain/sprain vs spasming. Low suspicion for fracture, spinal epidural abscess, or cauda equina. 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 Restrict work/heavy lifting X1 week. Results discussed with patient including worrisome signs and symptoms and strict return precautions, and when to return to the emergency department. They verbalized understanding and feel safe for discharge at this time. Differential Diagnosis Differential Diagnoses: The differential diagnosis associated with the presentation includes as above Admission/Observation Consideration of admission/observation: Escalation of care including admission/observation considered Lab Data [facility] Lab Attestation statement: I reviewed the patient's lab results. Radiology Impression Discussion of test interpretation with radiology: I have reviewed the radiologist's reading. Prescription Management I considered prescription management with: Pain Medication Discharge Plan Discharge Clinical Impression: Lumbar radiculopathy Patient Disposition: Home, Self-Care Instructions: Lumbar Radiculopathy (ED) Additional Instructions: Your pain is likely musculoskeletal. Please follow-up with work connection Continue taking previously prescribed muscle relaxer and ibuprofen. Take ibuprofen with food. Lidoderm patches are numbing patches, apply to painful area In addition take Tylenol at home If symptoms persist or worsen, pain becomes unbearable, you developed urinary retention or incontinence, or weakness return to the ED Prescriptions: New acetaminophen [Tylenol Extra Strength] 500 mg tablet 500 mg PO Q6H PRN (Reason: fever or pain) Qty: 14 0RF lidocaine [Lidoderm] 5 % adhesive patch,medicated 1 patch topical DAILY MDD remove after 12 hours PRN (Reason: pain) Qty: 30 0RF Rx Instructions: leave on most painful area for up to 12 hrs No Action omeprazole 20 mg tablet,delayed release (DR/EC) 20 mg PO DAILY Qty: 30 0RF cyclobenzaprine 10 mg tablet 10 mg PO TID PRN (Reason: muscle spasm) Qty: 14 0RF ibuprofen 600 mg tablet 600 mg PO Q8H PRN (Reason: pain) Qty: 20 0RF lidocaine 5 % adhesive patch,medicated 1 patch topical DAILY Qty: 15 0RF Rx Instructions: leave on most painful area for up to 12 hrs omeprazole 20 mg capsule,delayed release(DR/EC) 20 mg PO DAILY Qty: 14 0RF omeprazole magnesium [Prilosec OTC] 20 mg tablet,delayed release (DR/EC) 20 mg PO BID Qty: 30 0RF Referrals: [facility] [Outside] - 3 days Physician,None [Primary Care Provider] - 3 days Stand Alone Forms: Work/School Release
[2023-01-19 15:11] VITALS: BP 128/79; PULSE 76; RESP 18; TEMP 36.7; O2SAT 96
[2023-01-19] MEDS: Lidocaine 4 % Patch ADH..PATCH 1 PATCH TRANSDERMA (15:14)
[2023-01-19] MEDS: Ketorolac Tromethamine 30 MG/ML VIAL IM (15:15)
== END 2023-01-19 15:36 | disposition home or self-care (01) ==
PROVIDERS: Emergency Provider Student in an Organized Health Care Education/Training Program
DX: S39.012A Strain of muscle, fascia and tendon of lower back, initial encounter (principal); M54.16 Radiculopathy, lumbar region; X50.0XXA Overexertion from strenuous movement or load, initial encounter; Y93.9 Activity, unspecified; Y92.9 Unspecified place or not applicable; Y99.0 Civilian activity done for income or pay; Z79.899 Other long term (current) drug therapy
CPT/HCPCS: 96372; 99283; 99284; J1885

== ENCOUNTER 2023-08-01 09:04 | Emergency (ER) | payer MEDICAID, SELFPAY ==
--- NOTE | ~2023-08-01 | XR_ITS ---
EXAMINATION: XR ANKLE, RIGHT CLINICAL INFORMATION: Pain and mild swelling in the right ankle. COMPARISON: None available. TECHNIQUE: AP, lateral, and mortise views of the right ankle. FINDINGS: Soft tissue swelling is noted over the ankle, greater laterally. Ankle mortise is intact. There is no evidence of focal erosion or osteochondral defect at the ankle mortise. Osseous mineralization is normal. No evidence of acute fracture or dislocation. Mild degenerative changes are noted at the ankle joint with small marginal osteophytes. Posterior and plantar calcaneal spurs are noted. XR/XR ankle RT min 3V IMPRESSION: Mild degenerative changes in the right ankle. Soft tissue swelling over the lateral malleolus. Right calcaneal spurs. No evidence of acute fracture or dislocation.
[2023-08-01 09:16] VITALS: BP 137/85; PULSE 67; RESP 18; TEMP 36.6; O2SAT 98; BMI 41.6
[2023-08-01 09:26] VITALS: BP 130/70; PULSE 73; RESP 18; TEMP 36.4; O2SAT 96
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
[2023-08-01] MEDS: Acetaminophen 325 MG TABLET 975 MG PO (10:10)
[2023-08-01] MEDS: Ibuprofen 400 MG TABLET PO (10:10)
[2023-08-01 12:44] VITALS: BP 116/68; PULSE 65; RESP 18; O2SAT 98
== END 2023-08-01 13:32 | disposition home or self-care (01) ==
PROVIDERS: Emergency Provider Student in an Organized Health Care Education/Training Program
DX: S93.401A Sprain of unspecified ligament of right ankle, initial encounter (principal); V99.XXXA Unspecified transport accident, initial encounter; Y93.9 Activity, unspecified; Y92.9 Unspecified place or not applicable; Y99.9 Unspecified external cause status; Z79.899 Other long term (current) drug therapy
CPT/HCPCS: 73610; 99283; 99284

== ENCOUNTER 2025-04-19 16:59 | Emergency (ER) | payer MEDICAID, SELFPAY ==
--- NOTE | ~2025-04-19 | XR_ITS ---
CLINICAL HISTORY: pain plantar aspect 3 view left foot Comparison: None Findings: Bones intact. No dislocations. No significant loss of joint space, osteophytes, or erosions. No ankle effusion. No radiopaque foreign body. IMPRESSION: 1. No acute findings. This document has been electronically signed by: Patrick Perez MD on 04/19/2025 18:08:59
--- NOTE | ~2025-04-19 | XR_ITS ---
CLINICAL HISTORY: pain 3 view left ankle Comparison: None Findings: Bones intact. No dislocations. No significant loss of joint space, osteophytes, or erosions. No ankle effusion. No radiopaque foreign body. IMPRESSION: 1. No acute findings. This document has been electronically signed by: Patrick Perez MD on 04/19/2025 18:08:48
[2025-04-19 17:18] VITALS: PULSE 95; RESP 18; TEMP 36.3; O2SAT 97; BMI 40.1
--- NOTE | 2025-04-19 17:18 | ED.LOWEXIN ---
HPI - Extremity Injury (Lower) General Chief Complaint: Extremity Injury, Lower Stated Complaint: left ankle injury Time Seen by Provider: 04/19/25 18:25 Source: patient, RN notes reviewed and old records reviewed Mode of arrival: ambulatory History of Present Illness ED Provider: Ankita Meraz PA-C HPI Narrative: 34-year-old male with no significant past medical history presenting to the ED complaining of left ankle / foot pain s/p walking on uneven rocks 6 days ago while fishing. Admits to stepping on a rock / ? twisting. Denies known direct injury, trauma, fall, numbness, tingling, weakness. Related Data Previous Rx's ?Medication ?Instructions ?Recorded omeprazole 20 mg tablet,delayed 20 mg PO DAILY #30 tabs 04/15/21 release omeprazole magnesium 20 mg 20 mg PO BID #30 tabs 10/15/21 tablet,delayed release (Prilosec OTC) cyclobenzaprine 10 mg tablet 10 mg PO TID PRN muscle spasm #14 12/25/21 tabs ibuprofen 600 mg tablet 600 mg PO Q8H PRN pain #20 tabs 12/25/21 lidocaine 5 % topical patch 1 patch topical DAILY #15 ea 12/25/21 omeprazole 20 mg capsule,delayed 20 mg PO DAILY #14 caps 03/05/22 release acetaminophen 500 mg tablet 500 mg PO Q6H PRN fever or pain 01/19/23 (Tylenol Extra Strength) #14 tabs lidocaine 5 % topical patch 1 patch topical DAILY PRN pain #30 01/19/23 (Lidoderm) ea acetaminophen 500 mg tablet 500 mg PO Q6H PRN fever or pain 04/19/25 (Tylenol Extra Strength) #14 tabs ibuprofen 800 mg tablet 800 mg PO Q8H PRN pain #14 tabs 04/19/25 Allergies Allergy/AdvReac Type Severity Reaction Status Date / Time No Known Allergies Allergy Verified 04/19/25 17:20 Review of Systems Review of Systems: Yes all other systems are reviewed and are negative Constitutional: Constitutional: Reports as per [facility] Past Medical History Attestation statement: The following information was validated with the patient. Source: old records reviewed Medical History COVID-19 Obesity Asthma Social History Social History Alcohol intake: current Alcohol intake frequency: holidays/special occasions only Alcohol type: beer Patient Tobacco Use Status: Never used Tobacco Advance Directives: No Advance Directives Information Provided: No Physical Exam Vital Signs: Vital Signs: Last Vital Signs Temp 97.3 F 04/19/25 17:18 Pulse 95 04/19/25 17:18 Resp 18 04/19/25 17:18 Pulse Ox 97 04/19/25 17:18 O2 Del Method Room Air 04/19/25 17:18 BMI result Body Mass Index 40.1 Const: General: cooperative, healthy appearing and no acute distress Orientation/consciousness: patient oriented x3 Limitations: no limitations HEENT: Head: Yes normal to inspection and Yes atraumatic Ears: hearing grossly normal bilaterally General nose exam: Normal external nose present Face and sinus: Yes normal facial exam Eyes: General: appearance normal, both eyes and all related structures EOM: EOMs intact bilaterally Neck: Neck: Yes normal visual inspection and Yes no meningeal signs Resp: Effort & Inspection: normal respiratory effort and no respiratory distress Cardio: Rate: regular rate Skin: Rashes: no rashes Wounds: no wounds Neuro: General: patient oriented x3, tone normal and no meningeal signs Cranial nerves: Yes CN's II-XII intact bilaterally Gait exam (Neuro): Normal gait present Extrem: Other: Left foot/ ankle without appreciable deformity. + Tenderness diffusely to plantar aspect of foot and ankle. Mild swelling. No erythema/ warmth or crepitus. No ecchymosis. No pitting edema. No calf tenderness. Neurovascularly intact Course Course Course Narrative: This is a Rapid Medical Exam performed in triage by Ankita Meraz PA-C. Full HPI, ROS and PE to be performed by primary ED provider. 34-year-old male presenting to the ED c/o L ankle pain s/p fishing on Wednesday & walking in the rocks. Denies fall/twisting injury. Admits to stepping on a rock. PE: ambulating with slow, limping gait. L foot: +ttp to plantar aspect foot & L ankle. NV intact, No open wounds. no pitting edema Plan: XRs XR ankle LT min 3V IMPRESSION: 1. No acute findings. XR foot LT min 3V IMPRESSION: 1. No acute findings > Nico wrap and crutches supplied Results discussed with patient including worrisome signs and symptoms and strict return precautions, and when to return to the emergency department. They verbalized understanding and feel safe for discharge at this time. Medical Decision Making Medical Decision Making MDM Narrative: 34-year-old male with no significant past medical history presenting to the ED complaining of left ankle / foot pain s/p walking on uneven rocks 6 days ago while fishing. On exam vital signs stable, physical exam as noted above. Concern for sprain vs fracture. Low suspicion for DVT. No evidence of septic joint / arthritis. Low suspicion for Achilles injury/rupture Plan: X-rays Please refer to course for remaining clinical decision making, interpretation of labs/imaging results, and discussions with consultants and/or family members. Differential Diagnosis Differential Diagnoses: The differential diagnosis associated with the presentation includes As above Independent Interpretation I performed an independent interpretation of an: Plain X-Ray Radiology Impression Discussion of test interpretation with radiology: I have reviewed the radiologist's reading. External Record Review External record reviewed: Inpatient record, Office record, Outpatient record, Prior outpatient labs, Prior outpatient radiology, Primary care record and Outside ED record Tests considered The following testing was considered but not selected: As above Prescription Management I considered prescription management with: Pain Medication Chronic Conditions Patient?s care impacted by: Other Social Determinants Patient?s care significantly limited by Social Determinants of Health including: Other Social Determinant of Health Procedures Orthopedic Splinting/Casting Injury #1: Side: left Lower Extremity Injury Location: ankle and foot Lower Extremity Immobilizer: Nico wrap Other Orthopedic Equipment: crutches Discharge Plan Discharge Clinical Impression: Ankle sprain and strain, Acute foot pain Patient Disposition: Home, Self-Care Instructions: Arthralgia (ED), Ankle Strain (ED) Additional Instructions: your x-rays are unremarkable. Use Nico wrap for compression / stability Use crutches as needed Bear weight as tolerated Ice and elevate Take Tylenol and ibuprofen for pain / swelling If pain persists or worsens / becomes unbearable return to the ED Follow up with your doctor Prescriptions: New ibuprofen 800 mg tablet 800 mg PO Q8H PRN (Reason: pain) Qty: 14 0RF acetaminophen [Tylenol Extra Strength] 500 mg tablet 500 mg PO Q6H PRN (Reason: fever or pain) Qty: 14 0RF No Action omeprazole 20 mg tablet,delayed release (DR/EC) 20 mg PO DAILY Qty: 30 0RF cyclobenzaprine 10 mg tablet 10 mg PO TID PRN (Reason: muscle spasm) Qty: 14 0RF ibuprofen 600 mg tablet 600 mg PO Q8H PRN (Reason: pain) Qty: 20 0RF lidocaine 5 % adhesive patch,medicated 1 patch topical DAILY Qty: 15 0RF Rx Instructions: leave on most painful area for up to 12 hrs omeprazole 20 mg capsule,delayed release(DR/EC) 20 mg PO DAILY Qty: 14 0RF omeprazole magnesium [Prilosec OTC] 20 mg tablet,delayed release (DR/EC) 20 mg PO BID Qty: 30 0RF acetaminophen [Tylenol Extra Strength] 500 mg tablet 500 mg PO Q6H PRN (Reason: fever or pain) Qty: 14 0RF lidocaine [Lidoderm] 5 % adhesive patch,medicated 1 patch topical DAILY MDD remove after 12 hours PRN (Reason: pain) Qty: 30 0RF Rx Instructions: leave on most painful area for up to 12 hrs Referrals: Physician,Unknown J [Physician] - Stand Alone Forms: Work/School Release Print Language: Norwegian
[2025-04-19 18:35] VITALS: BP 121/68; PULSE 95; RESP 18; TEMP 36.3; O2SAT 97
== END 2025-04-19 18:36 | disposition home or self-care (01) ==
LOC: HO.ED 18:32
PROVIDERS: Emergency Provider Internal Medicine
DX: S93.402A Sprain of unspecified ligament of left ankle, initial encounter (principal); M25.572 Pain in left ankle and joints of left foot; X58.XXXA Exposure to other specified factors, initial encounter; X50.1XXA Overexertion from prolonged static or awkward postures, initial encounter; Y93.9 Activity, unspecified; Y92.9 Unspecified place or not applicable; Y99.8 Other external cause status
CPT/HCPCS: 29515; 73610; 73630; 99282; 99283; 99284

== ENCOUNTER → 2025-04-19 17:18 | Outpatient (BNV) | payer MEDICAID, SELFPAY | PROVIDERS: Emergency Provider Internal Medicine; Visit Provider Specialist | DX: M25.572 Pain in left ankle and joints of left foot (principal); M79.672 Pain in left foot | CPT/HCPCS: 73610; 73630 ==